=== PATIENT | female | born 1995 | race Caucasian/White ===

== ENCOUNTER 2016-05-13 13:45 | Emergency (ER) | payer BC ==
[~2016-05-13] VITALS: Ht 157.5 cm; Wt 57.9 kg
[2016-05-13 13:49] VITALS: TEMP 37; Ht 157.5 cm; Wt 57.9 kg
[2016-05-13] MEDS ORDERED: ONDANSETRON INJ 2 MG/ML 2 ML VIAL IV STA (14:52)
[2016-05-13] MEDS ORDERED: SODIUM CHLORIDE 0.9% 1000ML 1,000 ML IV STA ×2 (14:52)
[2016-05-13] MEDS ORDERED: LORAZEPAM 2 MG/ML 1 ML VIAL IV STA (14:52)
[2016-05-13] MEDS ORDERED: FENTANYL CITRATE INJ 50 MCG/1 ML 2 ML VIAL IV STA (14:52)
[2016-05-13] MEDS ORDERED: MEDR1INJ3 IM (14:53)
[2016-05-13 15:16] LABS: BASO % 0.3 %; BASO ABS # 0.03 K/uL (0-0.2); COMPLETE YES; EOS % 2.3 %; HEMATOCRIT 44.5 % (37-47); IG% 0.1 %; LYMPH % 27.7 %; LYMPH ABS # 2.43 K/uL (1.2-3.4); MEAN CELL VOLUME 91.2 fL (80-100); MEAN CORPUSCULAR HEMOGLOBIN 31.6 pg (25-34); MEAN CORPUSCULAR HGB CONC 34.6 g/dl (32-36); MEAN PLATELET VOLUME 10.4 fL (7.4-10.4); MONO % 9.2 %; NEUT % 60.4 %; PLATELET COUNT 260 K/uL (130-400); RED BLOOD COUNT 4.88 M/uL (4.2-5.4); WHITE BLOOD COUNT 8.76 K/uL (4.8-10.8)
[2016-05-13 15:24] LABS: URINE APPEARANCE CLEAR (CLEAR); URINE BILIRUBIN NEG (NEG); URINE COLOR YELLOW; URINE EPITHELIAL CELL AUTO >30 /lpf (0-5); URINE NITRITE NEG (NEG); URINE PH 6.5 (4.5-7.5); URINE SPECIFIC GRAVITY 1.021 (1.000-1.030); UROBILINOGEN NEG (NEG)
[2016-05-13 15:28] LABS: MANUAL MICROSCOPIC REQUIRED? NO; REVIEW REQ? YES
[2016-05-13 15:33] LABS: BUN/CREATININE RATIO 15.5 (10-20); CALCIUM 9.2 mg/dl (8.5-10.1); POTASSIUM 3.8 mmol/L (3.5-5.1)
[2016-05-13 15:36] LABS: ALB/GLOB RATIO 1.4 (0.9-2)
[2016-05-13 15:39] LABS: URINE MUCUS PRESENT (NONE PRSENT)
[2016-05-13] MEDS ORDERED: OPTIRAY 320 IV PRN (15:45)
[2016-05-13 15:57] LABS: PREG INTERNAL NEGATIVE QC NEG CLEAR BACKGROUND; PREG INTERNAL POSITIVE QC POS CONTROL LINE
--- NOTE | 2016-05-13 16:28 | DIAGNOSTIC IMAGING REPORT ---
CT SCAN OF THE ABDOMEN AND PELVIS WITH IV CONTRAST CLINICAL HISTORY: Right lower quadrant abdominal pain. COMPARISON STUDY: No priors. TECHNIQUE: Following the IV administration of 93 cc of Optiray 320, CT scan of the abdomen and pelvis is performed from the lung bases to the proximal femora. Images are reviewed in the axial, sagittal, and coronal planes. IV contrast was administered without complication. Automated dose control exposure was utilized. CT DOSE: 292.40 mGy.cm FINDINGS: Lung bases: The heart is normal in size and without pericardial effusion. The lung bases are clear. Liver: The contrast-enhanced liver is normal in size, contour, and attenuation. There is no intrahepatic biliary ductal dilatation. The hepatic veins and portal veins are patent. Gallbladder: Unremarkable. Spleen: Normal in size and attenuation. Pancreas: Unremarkable. Adrenal glands: Unremarkable. Kidneys: The contrast enhanced kidneys are normal in size and without hydronephrosis. The kidneys enhance symmetrically. Abdominal vasculature: The abdominal aorta is normal in course and caliber. Bowel: The small bowel and colon are normal in course and caliber. There is mild to moderate colonic fecal retention. The appendix is well-visualized and normal. Peritoneum: There is no intraperitoneal free air or abdominal ascites. Lymphadenopathy: None. Pelvic viscera: The bladder, uterus, and adnexa are normal as visualized. There are bilateral ovarian follicles. Skeletal structures: No lytic or blastic lesions are seen. IMPRESSION: There are no acute infectious or inflammatory findings in the abdomen or pelvis. Electronically signed by: Tristen Falcon M.D. 05/13/2016 4:25 PM Dictated Date/Time: 05/13/2016 4:22 PM
--- NOTE | 2016-05-13 17:47 | DIAGNOSTIC IMAGING REPORT ---
ULTRASOUND OF THE PELVIS CLINICAL HISTORY: Right pelvic pain. COMPARISON STUDY: Pelvic CT dated 05/13/2016. TECHNIQUE: Real-time, grayscale, and color flow sonography of the pelvis is performed transabdominally. Images are reviewed in the transverse and longitudinal planes. The patient declined the endovaginal examination. FINDINGS: Uterus: The uterus is normal in size and echotexture, measuring 7.3 x 3.8 x 5.1 cm. Endometrium: The endometrium is normal in appearance, and the endometrial stripe is normal in thickness measuring up to 0.3 cm. Ovaries: The ovaries are normal in size and morphology. The right ovary measures 3.3 x 2.0 x 2.8 cm and the left ovary measures 3.1 x 2.0 x 2.1 cm. Small follicles are noted. Normal Doppler waveforms are shown within both ovaries. Pelvis: There is no free fluid in the cul-de-sac. No concerning adnexal lesion is seen. IMPRESSION: 1. Unremarkable transabdominal sonographic assessment of the uterus and ovaries. 2. The patient declined the endovaginal examination. Electronically signed by: Tristen Falcon M.D. 05/13/2016 5:46 PM Dictated Date/Time: 05/13/2016 5:44 PM
--- NOTE | 2016-05-13 18:09 | EMERGENCY ROOM VISIT NOTE ---
History First contact with patient: 14:33 Chief Complaint: ABDOMINAL PAIN Stated Complaint: ABDOMINAL PAIN, CHILLS, FEVER, VOMITING, REFERRED Nursing Triage Summary: Triage note: Pt reports for the past three days she has had nausea, vomitting, and right lower abd pain, fever and chills. pt reports she was seen at [facility] and sent to ed for further eval. History of Present Illness Patient is a 20-year-old white female who presents to the emergency department accompanied by her boyfriend's mother for evaluation of right-sided abdominal pain, nausea and vomiting over the last 3 days. Patient states that she noted a dull, aching pain in the right mid abdomen, lateral to the umbilicus about 3 days ago. She noted associated headache, dizziness, and subsequently developed nausea and vomiting. She subjectively has felt feverish and had the chills but did not have a fever when she took her temperature with a thermometer. She reports she is vomiting everything she eats other than water and applesauce. She denies any diarrhea. No urinary symptoms. She denies any vaginal discharge. No significant gynecologic history. She does not menstruate due to Depo-Provera. Initially she thought she may have contracted a virus, then thought she could've gotten a foodborne illness as she had eaten some soup that no one else had had. She was seen at [facility], and sent to the emergency department for further care and evaluation. Review of Systems Review of systems as per HPI. All other systems reviewed were negative. 10 systems reviewed. Past Medical/Surgical History Medical Problems: (1) Anxiety (2) Depression (3) Panic disorder (4) Post traumatic stress disorder Electronic medical records are reviewed and summarized as above/below. See Problem List. Social History Smoking Status: Never Smoker Alcohol Use: none Marital Status: in relationship Housing Status: lives with significant other Occupation Status: employed Current/Historical Medications Scheduled PRN Ondasetron Odt (Zofran Odt), 4 MG SL Q4 PRN for Nausea or Vomiting Miscellaneous Medications Medroxyprogesterone Acetate (C (Depo-Provera Contraceptiv), 150 MG IM Allergies Coded Allergies: Grape (Unverified Allergy, Unknown, anaphylaxis, 05/13/16) Peanut (Unverified Allergy, Unknown, anaphylaxis, 05/13/16) Physical Exam Vital Signs Date Time Temp Pulse Resp B/P Pulse Ox O2 Delivery O2 Flow Rate FiO2 05/13/16 19:23 74 18 107/59 99 05/13/16 18:44 88 16 105/54 95 05/13/16 16:47 76 18 105/69 100 05/13/16 15:19 76 16 94/73 95 Room Air 05/13/16 13:49 37.0 91 18 151/81 97 Room Air Physical Exam CONSTITUTIONAL: Patient is well-appearing 20-year-old white female who is awake and alert and in no acute distress. EYES: Pupils equal, round, reactive to light and accommodation. EOMs intact without nystagmus. Sclera are anicteric. ENT: Tympanic membranes intact, with normal landmarks. External canals are clear. Oral and nasopharynx are clear. Mucous membranes are moist, no lesions , tongue and gums appear normal. NECK: No bruits auscultated. Supple without lymphadenopathy. No thyromegaly. No meningeal signs. Full active range of motion without discomfort. CARDIOVASCULAR: Regular rate and rhythm, with normal S1 and S2, no murmur or gallop or rub is heard. No carotid bruits auscultated. No JVD. Peripheral pulses easy to palpable. RESPIRATORY: Breath sounds equal and clear to auscultation without wheezes, rales, or rhonchi heard. Full and equal chest expansion without accessory muscle use or retractions. GI: Bowel sounds are present. Abdomen is soft, scaphoid, tender to percussion and palpation in the right mid and right lower quadrant with voluntary guarding. Positive rebound and referred rebound tenderness. No organomegaly. No pulsatile masses. MUSCULOSKELETAL: Full range of motion of extremities x 4 with good strength. No cyanosis, edema, joint tenderness or swelling. No deformity. INTEGUMENTARY: No lesions or rash, normal skin turgor. NEUROLOGICAL: Alert, oriented, and cooperative. Cranial nerves, sensation and strength grossly intact. Pupils round, equal, and react to light, EOMs are full. LYMPH: No lymphadenopathy. Medical Decision & Procedures ER Provider Diagnostic Interpretation: CT SCAN OF THE ABDOMEN AND PELVIS WITH IV CONTRAST CLINICAL HISTORY: Right lower quadrant abdominal pain. COMPARISON STUDY: No priors. TECHNIQUE: Following the IV administration of 93 cc of Optiray 320, CT scan of the abdomen and pelvis is performed from the lung bases to the proximal femora. Images are reviewed in the axial, sagittal, and coronal planes. IV contrast was administered without complication. Automated dose control exposure was utilized. CT DOSE: 292.40 mGy.cm FINDINGS: Lung bases: The heart is normal in size and without pericardial effusion. The lung bases are clear. Liver: The contrast-enhanced liver is normal in size, contour, and attenuation. There is no intrahepatic biliary ductal dilatation. The hepatic veins and portal veins are patent. Gallbladder: Unremarkable. Spleen: Normal in size and attenuation. Pancreas: Unremarkable. Adrenal glands: Unremarkable. Kidneys: The contrast enhanced kidneys are normal in size and without hydronephrosis. The kidneys enhance symmetrically. Abdominal vasculature: The abdominal aorta is normal in course and caliber. Bowel: The small bowel and colon are normal in course and caliber. There is mild to moderate colonic fecal retention. The appendix is well-visualized and normal. Peritoneum: There is no intraperitoneal free air or abdominal ascites. Lymphadenopathy: None. Pelvic viscera: The bladder, uterus, and adnexa are normal as visualized. There are bilateral ovarian follicles. Skeletal structures: No lytic or blastic lesions are seen. IMPRESSION: There are no acute infectious or inflammatory findings in the abdomen or pelvis. ULTRASOUND OF THE PELVIS CLINICAL HISTORY: Right pelvic pain. COMPARISON STUDY: Pelvic CT dated 05/13/2016. TECHNIQUE: Real-time, grayscale, and color flow sonography of the pelvis is performed transabdominally. Images are reviewed in the transverse and longitudinal planes. The patient declined the endovaginal examination. FINDINGS: Uterus: The uterus is normal in size and echotexture, measuring 7.3 x 3.8 x 5.1 cm. Endometrium: The endometrium is normal in appearance, and the endometrial stripe is normal in thickness measuring up to 0.3 cm. Ovaries: The ovaries are normal in size and morphology. The right ovary measures 3.3 x 2.0 x 2.8 cm and the left ovary measures 3.1 x 2.0 x 2.1 cm. Small follicles are noted. Normal Doppler waveforms are shown within both ovaries. Pelvis: There is no free fluid in the cul-de-sac. No concerning adnexal lesion is seen. IMPRESSION: 1. Unremarkable transabdominal sonographic assessment of the uterus and ovaries. 2. The patient declined the endovaginal examination. Laboratory Results 05/13/16 14:58 Red Blood Count 4.88, Mean Corpuscular Volume 91.2, Mean Corpuscular Hemoglobin 31.6, Mean Corpuscular Hemoglobin Concent 34.6, Mean Platelet Volume 10.4, Neutrophils (%) (Auto) 60.4, Lymphocytes (%) (Auto) 27.7, Monocytes (%) (Auto) 9.2, Eosinophils (%) (Auto) 2.3, Basophils (%) (Auto) 0.3, Neutrophils # (Auto) 5.28, Lymphocytes # (Auto) 2.43, Monocytes # (Auto) 0.81, Eosinophils # (Auto) 0.20, Basophils # (Auto) 0.03 05/13/16 14:58 Test 05/13/16 14:58 White Blood Count 8.76 K/uL (4.8-10.8) Red Blood Count 4.88 M/uL (4.2-5.4) Hemoglobin 15.4 g/dL (12.0-16.0) Hematocrit 44.5 % (37-47) Mean Corpuscular Volume 91.2 fL (80-100) Mean Corpuscular Hemoglobin 31.6 pg (25-34) Mean Corpuscular Hemoglobin Concent 34.6 g/dl (32-36) Platelet Count 260 K/uL (130-400) Mean Platelet Volume 10.4 fL (7.4-10.4) Neutrophils (%) (Auto) 60.4 % Lymphocytes (%) (Auto) 27.7 % Monocytes (%) (Auto) 9.2 % Eosinophils (%) (Auto) 2.3 % Basophils (%) (Auto) 0.3 % Neutrophils # (Auto) 5.28 K/uL (1.4-6.5) Lymphocytes # (Auto) 2.43 K/uL (1.2-3.4) Monocytes # (Auto) 0.81 K/uL (0.11-0.59) Eosinophils # (Auto) 0.20 K/uL (0-0.5) Basophils # (Auto) 0.03 K/uL (0-0.2) RDW Standard Deviation 39.3 fL (36.4-46.3) RDW Coefficient of Variation 11.7 % (11.5-14.5) Immature Granulocyte % (Auto) 0.1 % Immature Granulocyte # (Auto) 0.01 K/uL (0.00-0.02) Urine Color YELLOW Urine Appearance CLEAR (CLEAR) Urine pH 6.5 (4.5-7.5) Urine Specific [place] 1.021 (1.000-1.030) Urine Protein NEG (NEG) Urine Glucose (UA) NEG (NEG) Urine Ketones NEG (NEG) Urine Occult Blood NEG (NEG) Urine Nitrite NEG (NEG) Urine Bilirubin NEG (NEG) Urine Urobilinogen NEG (NEG) Urine Leukocyte Esterase TRACE (NEG) Urine WBC (Auto) 5-10 /hpf (0-5) Urine RBC (Auto) 0-4 /hpf (0-4) Urine Hyaline Casts (Auto) 1-5 /lpf (0-5) Urine Epithelial Cells (Auto) >30 /lpf (0-5) Urine Bacteria (Auto) 2+ (NEG) Urine Renal Epithelial Cells /lpf (0-5) Urine Mucus PRESENT (NONE PRSENT) Anion Gap 10.0 mmol/L (3-11) Est Creatinine Clear Calc Drug Dose 69.8 ml/min Estimated GFR () 92.6 Estimated GFR (Non- 79.9 BUN/Creatinine Ratio 15.5 (10-20) Calcium Level 9.2 mg/dl (8.5-10.1) Total Bilirubin 0.5 mg/dl (0.2-1) Aspartate Amino Transf (AST/SGOT) 13 U/L (15-37) Alanine Aminotransferase (ALT/SGPT) 20 U/L (12-78) Alkaline Phosphatase 80 U/L (45-117) Total Protein 8.0 gm/dl (6.4-8.2) Albumin 4.6 gm/dl (3.4-5.0) Globulin 3.4 gm/dl (2.5-4.0) Albumin/Globulin Ratio 1.4 (0.9-2) Human Chorionic Gonadotropin, Qual NEG (NEG) Medications Administered Medications (Trade) Dose Ordered Sig/Melba Route Start Time Stop Time Status Last Admin Dose Admin Sodium Chloride 1,000 ml @ 999 mls/hr Q1H1M STAT IV 05/13/16 14:52 05/13/16 15:52 DC 05/13/16 15:16 999 MLS/HR Sodium Chloride (Nss 1000ml) 1,000 ml @ 250 mls/hr Q4H STAT IV 05/13/16 14:52 05/13/16 18:51 DC 05/13/16 16:46 250 MLS/HR Fentanyl Citrate (Fentanyl Inj) 50 mcg NOW STAT IV 05/13/16 14:52 05/13/16 14:55 DC 05/13/16 15:15 50 MCG Ondansetron HCl (Zofran Inj) 4 mg NOW STAT IV 05/13/16 14:52 05/13/16 14:55 DC 05/13/16 15:15 4 MG Lorazepam (Ativan Inj) 1 mg NOW STAT IV 05/13/16 14:52 05/13/16 14:55 DC 05/13/16 15:16 1 MG Ondansetron HCl (ZOFRAN ODT 4MG Home Pack) 1 homepack UD ONCE PO 05/13/16 18:15 05/13/16 18:16 DC 05/13/16 19:13 1 HOMEPACK ED Course The patient was seen and evaluated as above. She has no old records available for review. She presents to the emergency department for evaluation of right- sided abdominal pain, nausea, vomiting and subjective fever and chills over the last 3 days. IV access was obtained and she was hydrated with normal saline solution. She CBC, CMP, serum hCG and urinalysis were performed. She was medicated with fentanyl 50 g IV, Zofran 4 mg IV and Ativan 1 mg IV for discomfort and anxiety. Given her symptoms, CT scan of the abdomen and pelvis with IV contrast was ordered. Laboratory studies did not demonstrate any leukocytosis, anemia, left shift or bandemia. Electrolytes and renal function are normal. Liver functions are not elevated. Her serum hCG is negative.urinalysis shows trace leukocyte esterase and a few WBCs, 2+ bacteria is present, but there are no other indicators for infection and sample is likely contaminated with greater than [address] scan of the abdomen and pelvis was essentially normal. There was mild to moderate colonic fecal retention, and appendix was well visualized and was normal. There was no free air or obstructive pattern. No obvious abnormalities involving the pelvic viscera. Gallbladder was unremarkable. There was no intrahepatic ductal dilatation. Patient questioned whether her symptoms could be gynecologic in nature. I did discuss with her that there was no obvious abnormality of the gynecologic structures on CT, but to further characterize we could image with an ultrasound, and she was in agreement. Pelvic ultrasound was unremarkable. There was no evidence for ovarian cyst or torsion. All laboratory and diagnostic imaging studies were reviewed with the patient and her family. Continue supportive care measures were discussed. She was encouraged to follow a soft/clear liquid diet and advance as tolerated. She was provided Zofran for nausea, but otherwise was encouraged to stick with acetaminophen for discomfort. Certainly if her symptoms are worsening she should return to the emergency department for further care and evaluation, otherwise follow-up with her primary care provider. Differential diagnoses entertained included UTI, pyelonephritis, renal colic, appendicitis, bowel obstruction, perforation, infectious versus inflammatory colitis, food borne illness, gastroenteritis, ovarian cyst, ovarian torsion, , ectopic , among others. Medical Decision See ED Course. Impression Primary Impression: Right lower quadrant abdominal pain Departure Information Prescriptions Ondasetron Odt (ZOFRAN ODT) 4 Mg Tab 4 MG SL Q4 Y for Nausea or Vomiting, #20 TAB Prov: Montserrat Vega PA 05/13/16 Referrals No Doctor, Assigned (PCP) Patient Instructions [facility] Additional Instructions DO NOT drive, drink alcohol, operate machinery, or perform dangerous activities today. You were given medications in the ER that can affect your ability to safely function or operate a vehicle. Ibuprofen(Motrin, Advil) may be used for fever or pain. Use 600mg every six hours as needed. Take with food. Avoid using more than 2400mg in a 24 hour period. Do not use 2400mg per day for more than three consecutive days without physician direction. Prolonged inappropriate use can lead to stomach upset or ulcers. This is available over the counter and typically comes in 200mg tablets. (AND/OR) Acetaminophen(Tylenol) may be used for fever or pain. Use 1000mg every eight hours as needed. Avoid using more than 3000mg in a 24 hour period. This is available over the counter. Zofran(odansetron) tablets 4mg: Take one and allow it to dissolve in your mouth every four hours as needed for nausea or vomiting. Read all the package inserts or medication information paperwork provided. If you have any questions or concerns call your primary provider, pharmacist or the ER for assistance. Rest and drink plenty of fluids as tolerated. Slow sips of water or sports drinks are recommended instead of large amounts all at once. Continue current medications. Once your stomach is settled start with a clear liquid diet (jello, soup broth, etc.) and then advance as tolerated. You should avoid full, heavy meals for about 24 hrs from the time your symptoms resolved. Return to the ER immediately for worsening or persistent abdominal pain, vomiting, fevers, chest pains, difficulty breathing, black or bloody stools, worsening of your condition, or as needed. Return to the ER or follow up with your primary provider in 8-12 hours for a recheck of your current condition. Follow up with your primary physician in 1-2 days for a recheck of your current condition.
[2016-05-13] MEDS ORDERED: ONDA4TAB10 SL (18:11)
[2016-05-13] MEDS ORDERED: ONDANSETRON HOME PACK 4MG OD TAB PO ONE (18:15)
[2016-05-13 19:23] VITALS: BP 107/59; PULSE 74; O2SAT 99
== END 2016-05-13 19:25 | disposition home or self-care (01) ==
LOC: C.EDB 13:46 → C.EDC 19:25
DX: R10.31 Right lower quadrant pain (principal); F41.9 Anxiety disorder, unspecified; F43.10 Post-traumatic stress disorder, unspecified

== ENCOUNTER → 2016-11-20 | Outpatient (CLI) | payer BC ==
[~2016-11-20] MED LIST: MEDR1INJ3 IM
== END | disposition home or self-care (01) ==
LOC: C.PAPS 15:09
PROVIDERS: ATTEND Obstetrics & Gynecology
DX: Z01.419 Encounter for gynecological examination (general) (routine) without abnormal findings (principal)

== ENCOUNTER → 2016-11-20 | Outpatient (CLI) | payer BC ==
[2016-11-23 01:31] LABS: CHLAMYDIA TRACH RNA*** NOT DETECTED (NOT DETECTED); GC (NEIS GONORRHOEAE)RNA** NOT DETECTED (NOT DETECTED)
== END | disposition home or self-care (01) ==
LOC: C.LABSPEC 13:52
PROVIDERS: ATTEND Obstetrics & Gynecology
DX: Z11.3 Encounter for screening for infections with a predominantly sexual mode of transmission (principal)

== ENCOUNTER → 2016-11-20 | Outpatient (CLI) | payer BC ==
[2016-11-20 14:03] LABS: PREG INTERNAL NEGATIVE QC NEG CLEAR BACKGROUND; PREG INTERNAL POSITIVE QC POS CONTROL LINE; THYROID STIMULATING HORMONE 1.15 uIu/ml (0.300-4.500)
== END | disposition home or self-care (01) ==
LOC: C.LAB1850 11:45
PROVIDERS: ATTEND Obstetrics & Gynecology
DX: R63.5 Abnormal weight gain (principal); Z31.69 Encounter for other general counseling and advice on procreation; N91.2 Amenorrhea, unspecified

== ENCOUNTER → 2017-03-12 | Outpatient (CLI) | payer BC ==
[2017-03-12 14:38] LABS: BASO % 0.6 %; BASO ABS # 0.04 K/uL (0-0.2); COMPLETE YES; EOS % 1.8 %; HEMATOCRIT 43.4 % (37-47); IG% 0.1 %; LYMPH % 22.3 %; MEAN CELL VOLUME 92.7 fL (80-100); MEAN CORPUSCULAR HEMOGLOBIN 31.2 pg (25-34); MEAN CORPUSCULAR HGB CONC 33.6 g/dl (32-36); MONO % 10.2 %; PLATELET COUNT 238 K/uL (130-400); RED BLOOD COUNT 4.68 M/uL (4.2-5.4); WHITE BLOOD COUNT 7.16 K/uL (4.8-10.8)
[2017-03-12 14:43] LABS: PREG INTERNAL NEGATIVE QC NEG CLEAR BACKGROUND; PREG INTERNAL POSITIVE QC POS CONTROL LINE
== END | disposition home or self-care (01) ==
LOC: C.LAB1850 11:58
PROVIDERS: ATTEND Physician Assistant
DX: N92.6 Irregular menstruation, unspecified (principal)

== ENCOUNTER 2017-06-03 15:33 | Emergency (ER) | payer BC ==
[~2017-06-03] VITALS: Ht 158.8 cm; Wt 64.8 kg
[2017-06-03 16:08] VITALS: TEMP 37.5; Ht 158.8 cm; Wt 64.8 kg
[2017-06-03] MEDS ORDERED: ONDANSETRON INJ 2 MG/ML 2 ML VIAL IV STA ×2 (16:41→18:22)
[2017-06-03] MEDS ORDERED: ACETAMINOPHEN IV 100 ML IV STA (16:41)
[2017-06-03] MEDS ORDERED: SODIUM CHLORIDE 0.9% 1000ML 1,000 ML IV STA ×2 (16:41→18:22)
--- NOTE | 2017-06-03 16:45 | EMERGENCY ROOM VISIT NOTE ---
ED Visit Note First contact with patient: 16:33 CHIEF COMPLAINT: Heavy vaginal bleeding, abdominal pain HISTORY OF PRESENTING ILLNESS: This is a 21 year old female who presents to the emergency department with complaint of heavy vaginal bleeding and abdominal pain. She states she used to be on the Depo shot for about five years, this was stopped in June of last year and she got her periods back several months ago. Her last menstrual period was 05/12, and she has been regular every month for some time. She sates she started with light spotting two days ago, then had heavier flow yesterday. Today she has been passing large clots and going through 2 pads every hour for the past several hours, and has also been having diffuse abdominal cramping with severe sharp stabbing pains in her right abdomen. She states the pain is constant, worse with moving, 10/10. She has not tried any medications for the pain. She did speak with her [facility] clinic and was referred to the emergency department for further evaluation. She has had associated nausea and vomiting, chills and sweats. She denies any dysuria or urinary frequency, diarrhea, fevers or chills, chest pain, shortness of breath, syncope, or rash. REVIEW OF SYSTEMS: A complete 10 point review of systems was reviewed with the patient with pertinent positives and negatives as per history of present illness. All else were negative. PAST MEDICAL HISTORY: Anxiety SOCIAL HISTORY: Lives at home with her significant other. She denies tobacco, alcohol, or illicit drug use. ALLERGIES: Reviewed in chart. PHYSICAL EXAM: CONSTITUTIONAL: Pleasant and cooperative. No acute distress, but appears anxious and uncomfortable and is slow to move throughout exam. Mildly dehydrated, but otherwise well appearing and well nourished. HEENT: Normocephalic, atraumatic. Pupils equal, round and reactive to light, EOMI. TMs normal. Pharynx normal. Tacky mucous membranes. NECK: Supple, full active range of motion without discomfort. RESPIRATORY: Clear to auscultation bilaterally with no wheezing, crackles, rhonchi or stridor. Equal expansion bilaterally. CARDIOVASCULAR: Tachycardic. Regular rhythm with no murmurs, rubs or gallops. Normal peripheral perfusion. No edema. GASTROINTESTINAL: Soft, diffusely tender throughout, most tender in the right lower quadrant, nondistended. Positive guarding throughout. No rebound tenderness. Right CVA tenderness. No palpable masses or HSM. Bowel sounds present in all quadrants. PELVIC EXAM: VULVA: No ulcers, vesicles or atrophy. VAGINA: Bloody discharge with small clots, no foul odor. CERVIX: Closed, pink, nontender, no cervical motion tenderness, small amount of bloody discharge from the os. UTERUS: Normal size, tender to palpation. ADNEXA: Fullness in the right adnexa with significant tenderness to palpation, left adnexa is mildly tender. A nurse was present as a casing man during the examination. MUSCULOSKELETAL: Full range of motion of all joints without discomfort. INTEGUMENTARY: No rash or other significant dermatologic conditions noted. NEUROLOGIC: Alert and oriented X 4 with normal affect. Normal strength and sensation in all 4 extremities. No focal neurologic deficits noted. Normal speech. Normal gait observed. ED COURSE AND MEDICAL DECISION MAKING: CC: Patient presenting with complaint of heavy vaginal bleeding and abdominal pain DIFFERENTIAL DIAGNOSIS: Includes, but not limited to dysfunctional uterine bleeding, ectopic , threatened miscarriage, anemia, dehydration, uterine fibroids/polyps, ovarian cyst, ovarian torsion, among others. INTERPRETATION OF LABS: No leukocytosis, no anemia, no significant electrolyte abnormalities, normal renal function, normal liver enzymes. Coagulation factors within normal limits. UA shows large blood, negative for infection. Urine negative. IMAGING: TRANSVAG-FEMALE PELVIS, PELVIC COMPLETE NON OB CLINICAL HISTORY: 21 years-old Female presenting with eval heavy vaginal bleeding, regular menstrual cycles, last menstrual period 06/01/2017. TECHNIQUE: Real-time grayscale and color and spectral Doppler ultrasound imaging of the pelvis was performed first using a transabdominal probe and subsequently transvaginal for better characterization. COMPARISON: CT from 05/13/2016. FINDINGS: Uterus: Normal. Anteverted. The uterus measures 7.7 x 3.8 x 5.2 cm. Endometrial stripe measures 4 mm in thickness. Endometrium normal-appearing. Cervix normal. Right adnexa: Right ovary with multiple follicles (up to 8 on a single image all less than 1 cm). Right ovary measures 3.3 x 2.2 x 3.2 cm. Normal color Doppler flow and arterial and venous waveforms within the ovarian parenchyma. Left adnexa: Left ovary with multiple follicles (up to 5 on a single image all less than 1 cm). Left ovary measures 3.4 x 2.1 x 3.0 cm. Normal color Doppler flow and arterial and venous waveforms within the ovarian parenchyma. Other: No free fluid. IMPRESSION: No significant abnormality identified within the pelvis. MEDICATION RECONCILIATION: I attest that I have personally reviewed the patient 's current medication list. INITIAL VITAL SIGNS REVIEW: I reviewed the patient's initial vital signs and interpret them as follows: T: Afebrile; BP: Normotensive; HR: Tachycardic; RR : Within normal limits; Pulse Ox: Within normal limits on room air. Blood pressure screening: The patient was found to have normal blood pressure on screening and does not require follow-up for repeat blood pressure check. SUMMARY: Patient was evaluated at bedside, history and physical exam performed. Patient is alert and oriented, no acute distress, but does appear uncomfortable throughout exam, resting on the stretcher. Patient is diffusely tender throughout the abdomen, most tender in the right lower quadrant. Pelvic exam performed, noting moderate vaginal bleeding, but no gushing or steady flow, cervical os is closed. Patient with fullness and significant tenderness in the right adnexa. Orders were placed at bedside for labs, UA and urine , IV fluids for hydration, IV morphine and Tylenol for pain, transvaginal pelvic ultrasound to evaluate for abnormal bleeding. Patient discussed with Dr. Fernando, who agrees with my assessment and plan. Labs and imaging reviewed as above, unremarkable. She is not . Ultrasound shows multiple small ovarian follicles bilaterally, greater on the right, otherwise negative for any acute findings. I spoke with Dr. Rodriguez, [facility], she recommends against starting hormonal therapy at this time, recommends patient take 600mg Motrin q6h and follow up as an outpatient. Patient reassessed multiple times throughout ED stay, she reports her pain is somewhat improved and her bleeding has significant slowed down while being in the emergency department. She is tolerating oral fluids without difficulty, her nausea is improved, and her tachycardia is resolving after IV fluids. Patient was updated on all results and plan for discharge, she was comfortable with this plan. I encouraged patient to follow closely with her seat pack inspector if her vaginal bleeding/abdominal cramping continues. Patient was also given strict return precautions should her symptoms worsen, she verbalized understanding. Patient was discharged home in stable condition and ambulatory. Problem List Medical Problems: (1) Anxiety Status: Chronic (2) Depression Status: Chronic (3) Panic disorder Status: Chronic (4) Post traumatic stress disorder Status: Chronic Current/Historical Medications No Active Prescriptions or Reported Meds Allergies Coded Allergies: Grape (Unverified Allergy, Unknown, anaphylaxis, 06/03/17) Peanut (Unverified Allergy, Unknown, anaphylaxis, 06/03/17) Vital Signs Date Time Temp Pulse Resp B/P (MAP) Pulse Ox O2 Delivery O2 Flow Rate FiO2 06/03/17 20:18 77 16 105/62 95 06/03/17 19:13 83 18 108/65 98 Room Air 06/03/17 18:18 90 18 91/54 99 Room Air 06/03/17 17:25 Room Air 06/03/17 17:18 86 18 100/63 99 Room Air 06/03/17 16:08 37.5 107 18 122/79 97 Room Air Laboratory Results 06/03/17 17:15 Red Blood Count 4.57, Mean Corpuscular Volume 91.9, Mean Corpuscular Hemoglobin 31.3, Mean Corpuscular Hemoglobin Concent 34.0, Mean Platelet Volume 10.7, Neutrophils (%) (Auto) 77.2, Lymphocytes (%) (Auto) 9.7, Monocytes (%) (Auto) 11.8, Eosinophils (%) (Auto) 1.0, Basophils (%) (Auto) 0.2, Neutrophils # (Auto ) 6.25, Lymphocytes # (Auto) 0.79, Monocytes # (Auto) 0.96, Eosinophils # (Auto ) 0.08, Basophils # (Auto) 0.02 06/03/17 17:15 Test 06/03/17 17:00 06/03/17 17:15 Urine Color YELLOW Urine Appearance CLEAR (CLEAR) Urine pH 5.0 (4.5-7.5) Urine Specific [place] 1.025 (1.000-1.030) Urine Protein NEG (NEG) Urine Glucose (UA) NEG (NEG) Urine Ketones NEG (NEG) Urine Occult Blood 3+ (NEG) Urine Nitrite NEG (NEG) Urine Bilirubin NEG (NEG) Urine Urobilinogen NEG (NEG) Urine Leukocyte Esterase NEG (NEG) Urine WBC (Auto) 1-5 /hpf (0-5) Urine RBC (Auto) 10-30 /hpf (0-4) Urine Hyaline Casts (Auto) 1-5 /lpf (0-5) Urine Epithelial Cells (Auto) >30 /lpf (0-5) Urine Bacteria (Auto) NEG (NEG) Urine Test NEG (NEG) White Blood Count 8.11 K/uL (4.8-10.8) Red Blood Count 4.57 M/uL (4.2-5.4) Hemoglobin 14.3 g/dL (12.0-16.0) Hematocrit 42.0 % (37-47) Mean Corpuscular Volume 91.9 fL (80-100) Mean Corpuscular Hemoglobin 31.3 pg (25-34) Mean Corpuscular Hemoglobin Concent 34.0 g/dl (32-36) Platelet Count 232 K/uL (130-400) Mean Platelet Volume 10.7 fL (7.4-10.4) Neutrophils (%) (Auto) 77.2 % Lymphocytes (%) (Auto) 9.7 % Monocytes (%) (Auto) 11.8 % Eosinophils (%) (Auto) 1.0 % Basophils (%) (Auto) 0.2 % Neutrophils # (Auto) 6.25 K/uL (1.4-6.5) Lymphocytes # (Auto) 0.79 K/uL (1.2-3.4) Monocytes # (Auto) 0.96 K/uL (0.11-0.59) Eosinophils # (Auto) 0.08 K/uL (0-0.5) Basophils # (Auto) 0.02 K/uL (0-0.2) RDW Standard Deviation 39.5 fL (36.4-46.3) RDW Coefficient of Variation 11.8 % (11.5-14.5) Immature Granulocyte % (Auto) 0.1 % Immature Granulocyte # (Auto) 0.01 K/uL (0.00-0.02) Prothrombin Time 10.3 SECONDS (9.0-12.0) Prothromb Time International Ratio 1.0 (0.9-1.1) Activated Partial Thromboplast Time 27.9 SECONDS (21.0-31.0) Partial Thromboplastin Ratio 1.1 Anion Gap 8.0 mmol/L (3-11) Est Creatinine Clear Calc Drug Dose 96.7 ml/min Estimated GFR () 118.6 Estimated GFR (Non- 102.4 BUN/Creatinine Ratio 17.6 (10-20) Calcium Level 9.1 mg/dl (8.5-10.1) Total Bilirubin 0.6 mg/dl (0.2-1) Aspartate Amino Transf (AST/SGOT) 9 U/L (15-37) Alanine Aminotransferase (ALT/SGPT) 15 U/L (12-78) Alkaline Phosphatase 82 U/L (45-117) Total Protein 7.8 gm/dl (6.4-8.2) Albumin 4.3 gm/dl (3.4-5.0) Globulin 3.5 gm/dl (2.5-4.0) Albumin/Globulin Ratio 1.2 (0.9-2) Medications Administered Medications (Trade) Dose Ordered Sig/Melba Route Start Time Stop Time Status Last Admin Dose Admin Ondansetron HCl (Zofran Inj) 4 mg NOW STAT IV 06/03/17 16:41 06/03/17 16:43 DC 06/03/17 17:17 4 MG Sodium Chloride 1,000 ml @ 999 mls/hr Q1H1M STAT IV 06/03/17 16:41 06/03/17 17:41 DC 06/03/17 17:17 999 MLS/HR Acetaminophen 100 ml @ 400 mls/hr NOW STAT IV 06/03/17 16:41 06/03/17 16:55 DC 06/03/17 17:17 400 MLS/HR Morphine Sulfate (MoRPHine SULFATE INJ) 4 mg NOW STAT IV 06/03/17 16:58 06/03/17 16:59 DC 06/03/17 17:18 4 MG Ketorolac Tromethamine (Toradol Inj) 15 mg NOW STAT IV 06/03/17 18:07 06/03/17 18:12 DC 06/03/17 18:19 15 MG Ondansetron HCl (Zofran Inj) 4 mg NOW STAT IV 06/03/17 18:22 06/03/17 18:23 DC 06/03/17 18:26 4 MG Sodium Chloride 1,000 ml @ 999 mls/hr Q1H1M STAT IV 06/03/17 18:22 06/03/17 19:22 DC 06/03/17 18:26 999 MLS/HR Departure Information Impression Primary Impression: Abnormal vaginal bleeding Dispostion Home / Self-Care Condition GOOD Prescriptions No Active Prescriptions or Reported Meds Referrals No Doctor, Assigned (PCP) Marina Rodriguez MD Patient Instructions ED Bleed Irregular Vaginal, My [facility] Additional Instructions You have been evaluated and treated in the emergency department today for your abnormal vaginal bleeding. Lab tests and imaging studies have ruled out any emergent causes for your symptoms which would warrant admission or surgery. To help control your abdominal cramping and to help slow down the bleeding, you should take regular strength (200 mg/tab) Advil (ibuprofen) 3 tabs every 6 hours for the next few days. Do not exceed a dose of 2400 mg in 24 hours. You may also take extra strength Tylenol (500 mg) 1-2 tablets every 6-8 hours for additional pain relief. Do not take more than 3000 mg in 24 hours. You may apply heating pad to your lower abdomen for comfort. Drink plenty of fluids to stay well hydrated. Please call your gynecology office tomorrow to set up a follow-up appointment. Please return to the emergency department for worsening symptoms, including severe worsening pain, persistent heavy bleeding (soaking through 2 or more pads /tampons per hour or passing multiple blood clots the size of your fist), fever/ chills, severe dizziness or passing out, or any other concerns. Work Instructions Return To Work: 2 days
[2017-06-03] MEDS ORDERED: MoRPHine SULFATE 4 MG/ML 1 ML CARP\\VIAL IV STA (16:58)
[2017-06-03 17:49] LABS: BASO % 0.2 %; BASO ABS # 0.02 K/uL (0-0.2); EOS ABS # 0.08 K/uL (0-0.5); HEMOGLOBIN 14.3 g/dL (12.0-16.0); IG# 0.01 K/uL (0.00-0.02); LYMPH % 9.7 %; LYMPH ABS # 0.79 K/uL (1.2-3.4); MEAN CELL VOLUME 91.9 fL (80-100); MEAN CORPUSCULAR HEMOGLOBIN 31.3 pg (25-34); MEAN PLATELET VOLUME 10.7 fL (7.4-10.4); MONO % 11.8 %; MONO ABS # 0.96 K/uL (0.11-0.59); NEUT % 77.2 %; NEUT ABS # 6.25 K/uL (1.4-6.5); PLATELET COUNT 232 K/uL (130-400); RED CELL DISTRIBUTION WIDTH CV 11.8 % (11.5-14.5); RED CELL DISTRIBUTION WIDTH SD 39.5 fL (36.4-46.3); WHITE BLOOD COUNT 8.11 K/uL (4.8-10.8)
[2017-06-03 18:00] LABS: PTT PATIENT 27.9 SECONDS (21.0-31.0)
[2017-06-03 18:06] LABS: ALBUMIN 4.3 gm/dl (3.4-5.0); CALCIUM 9.1 mg/dl (8.5-10.1); CREATININE 0.81 mg/dl (0.60-1.20); POTASSIUM 3.7 mmol/L (3.5-5.1)
[2017-06-03] MEDS ORDERED: KETOROLAC TROMETHAMINE 30 MG/ML VIAL IV STA (18:07)
[2017-06-03 18:08] LABS: TOTAL PROTEIN 7.8 gm/dl (6.4-8.2)
--- NOTE | 2017-06-03 19:34 | DIAGNOSTIC IMAGING REPORT ---
TRANSVAG-FEMALE PELVIS, PELVIC COMPLETE NON OB CLINICAL HISTORY: 21 years-old Female presenting with eval heavy vaginal bleeding, regular menstrual cycles, last menstrual period 06/01/2017. TECHNIQUE: Real-time grayscale and color and spectral Doppler ultrasound imaging of the pelvis was performed first using a transabdominal probe and subsequently transvaginal for better characterization. COMPARISON: CT from 05/13/2016. FINDINGS: Uterus: Normal. Anteverted. The uterus measures 7.7 x 3.8 x 5.2 cm. Endometrial stripe measures 4 mm in thickness. Endometrium normal-appearing. Cervix normal. Right adnexa: Right ovary with multiple follicles (up to 8 on a single image all less than 1 cm). Right ovary measures 3.3 x 2.2 x 3.2 cm. Normal color Doppler flow and arterial and venous waveforms within the ovarian parenchyma. Left adnexa: Left ovary with multiple follicles (up to 5 on a single image all less than 1 cm). Left ovary measures 3.4 x 2.1 x 3.0 cm. Normal color Doppler flow and arterial and venous waveforms within the ovarian parenchyma. Other: No free fluid. IMPRESSION: No significant abnormality identified within the pelvis. Electronically signed by: Rakesh Miranda M.D. 06/03/2017 7:33 PM Dictated Date/Time: 06/03/2017 7:29 PM
[2017-06-03 20:18] VITALS: BP 105/62; PULSE 77; O2SAT 95
== END 2017-06-03 20:19 | disposition home or self-care (01) ==
LOC: C.EDB 15:34 → C.EDC 20:19
DX: N93.9 Abnormal uterine and vaginal bleeding, unspecified (principal); F32.9 Major depressive disorder, single episode, unspecified; F43.10 Post-traumatic stress disorder, unspecified; F41.0 Panic disorder [episodic paroxysmal anxiety]; Z91.010 Allergy to peanuts; Z91.018 Allergy to other foods

== ENCOUNTER 2019-05-17 18:51 | Inpatient (IN) ==
[2019-05-17] MEDS ORDERED: BUTORPHANOL TARTRATE 1 MG/ML VIAL IV PRN (18:59)
[2019-05-17] MEDS: LACTATED RINGER'S 1,000 ML IV PRN ×2 (19:00→20:03)
[2019-05-17] MEDS ORDERED: ePHEDrine sulfate 50 MG/ML AMP ONE (19:04)
[2019-05-17] MEDS ORDERED: fentaNYL citrate 100 MCG/2 ML VIAL ONE (19:04)
[2019-05-17] MEDS ORDERED: BUPIVACAINE 0.25% 30 ML VIAL ONE (19:04)
[2019-05-17] MEDS ORDERED: fentaNYL 2MCG/ML ROPIV 1.25MG/ML 100 ML BAG EPI ONE (19:05)
[2019-05-17 19:30] LABS: Hematocrit (blood only) 35.5 % (37-47); Hemoglobin 12.1 g/dL (12.0-16.0); Mean Corpuscular Hemoglobin 31.8 pg (25-34); Mean Corpuscular Volume 93.4 fL (80-100); Mean Platelet Volume 10.9 fL (7.4-10.4); Platelet Count 202 K/uL (130-400); RDW Coefficient of Variation 12.5 % (11.5-14.5); RDW Standard Deviation 42.4 fL (36.4-46.3); White Blood Count 7.91 K/uL (4.8-10.8)
[2019-05-17 19:54] LABS: Mean Corpuscular Hgb Conc 34.1 g/dL (32-36)
--- NOTE | 2019-05-17 20:04 | Anesthesiology Consultation ---
Date of Service May 17, 2019 Assessment & Plan ASA ASA2 Proposed Anesthesia Anesthesia Type: Spinal Risk / Benefits Reviewed With: PT / POA / Parent / Guardian, Accepts Plan and Informed Consent Obtained History Height/Weight Height: 5 ft 2 in Weight: 72.575 kg Allergies Allergy/AdvReac Type Severity Reaction Status Date / Time grape Allergy Severe anaphylaxis Verified 04/26/19 15:25 Medications Home Medications Medication Instructions Recorded Confirmed Last Taken PNV cmb#95-ferrous fumarate-FA 1 tab PO DAILY 12/09/18 05/17/19 05/17/19 07:00 [] Active Medications Generic Name Dose Route Start Last Admin Trade Name Freq PRN Reason Stop Dose Admin Butorphanol Tartrate 1 mg 05/17/19 18:59 05/17/19 19:07 Stadol IV 06/16/19 18:58 1 mg ONCE PRN Administration Pain Lactated Ringer's 1,000 mls @ 125 mls/hr 05/17/19 19:00 05/17/19 20:03 Lr IV 05/19/19 18:59 999 mls/hr .Q8H PRN Administration L&D Protocol Protocol Past Medical History Medical History Depression Irritable bowel syndrome Exercise / Class Metabolic Activity II 4-5 Yardwork/Stairs/Walk up hill Past Family History Family History Grandmother (Maternal) Hypertension Past Surgical History Surgical History History of colonoscopy Past Anesthesia History No Hx of Anesthesia Complications and No Family Hx of Anesthesia Complications History of PONV No Hx of PONV and No Hx of Motion Sickness Social History Smoking Status: Never smoker Hx Alcohol Use: No Hx Substance Use: No Review of Systems denies fever/cough/ colds/ chest pain/ SOB/ PAULINA Constitutional: no fever and no chills Respiratory: no cough and no dyspnea denies PAULINA Cardiovascular: no chest pain and no dyspnea on exertion Physical Exam Vital Signs Last Vital Signs Temp 36.5 C 05/17/19 19:20 Pulse 69 05/17/19 19:20 Resp 20 05/17/19 19:20 BP 129/79 05/17/19 19:20 ENMT Mouth: no TMJ abnormality and no dentition abnormality Thyromental Distance: > or= 3.5 Finger Breadths Mallampati Class: II Neck neck extension not limited Respiratory normal respiratory effort; no respiratory distress Auscultation: lungs clear to auscultation bilaterally Cardiovascular Rate/Rhythm: regular rate and regular rhythm Neurologic moves all extremities Psychiatric Orientation: alert and oriented x 3 Testing Laboratory Results 05/17/19 19:17
--- NOTE | 2019-05-17 21:09 | Anesthesiology Progress Note ---
Date of Service May 17, 2019 Anesthesia Post Procedure Vital Signs Vital Signs: Temp Pulse Resp BP Pulse Ox 05/17/19 21:06 71 97 05/17/19 21:04 105 H 93 05/17/19 21:01 71 20 98 05/17/19 20:59 81 141/63 H 05/17/19 20:58 104 H 93 05/17/19 20:56 85 99 05/17/19 20:54 68 134/73 05/17/19 20:51 91 H 98 05/17/19 20:50 77 149/64 H 05/17/19 20:49 82 91 05/17/19 20:46 65 20 98 05/17/19 20:45 68 116/74 05/17/19 20:41 74 100 05/17/19 20:39 66 115/84 05/17/19 20:36 73 100 05/17/19 20:33 65 120/73 05/17/19 20:31 74 98 05/17/19 20:30 20 05/17/19 20:29 67 129/75 05/17/19 20:26 81 100 05/17/19 20:21 84 123/81 98 05/17/19 20:19 66 20 115/76 05/17/19 20:17 73 122/84 05/17/19 20:16 64 97 05/17/19 20:14 76 123/81 05/17/19 20:11 76 98 05/17/19 20:10 88 128/91 05/17/19 19:20 36.5 C 69 20 129/79 05/17/19 19:09 36.5 C 69 20 129/79 Transfer of Care Handoff Completed per policy Notes Mental Status: alert / awake / arousable and participated in evaluation Patient Amnestic to Procedure: Yes Nausea / Vomiting: adequately controlled Pain: adequately controlled Airway Patency, RR, SpO2: stable & adequate BP & HR: stable & adequate Hydration State: stable & adequate Anesthetic Complications: no major complications apparent and Pt Satisfied with anesthetic care
[2019-05-17] MEDS: OXYTOCIN 30 UNITS/500 ML BAG IV PRN (23:50)
[2019-05-17] MEDS ORDERED: METHYLERGONOVINE MALEATE 0.2 MG/ML AMP IM ONE (23:56)
[2019-05-17] MEDS ORDERED: bisacodyL 10 MG SUPP PR PRN (23:56)
[2019-05-17] MEDS ORDERED: BENZOCAINE 20% AER SPR 82.5 GM CAN EXT PRN (23:56)
[2019-05-17] MEDS ORDERED: SUPERCREAM 0.870% 15 GM JAR EXT PRN (23:56)
[2019-05-17] MEDS ORDERED: HYDROCORTISONE ACETATE 25 MG SUPP PR PRN (23:56)
[2019-05-17] MEDS ORDERED: DIPHTHERIA/TETANUS/PERTUSSIS 0.5 ML SYR/VIAL IM ONE (23:56)
[2019-05-17] MEDS ORDERED: ACETAMINOPHEN W/CODEINE #3 1 TAB PO PRN (23:56)
[2019-05-17] MEDS ORDERED: OXYTOCIN 30 UNITS/500 ML BAG IV PRN (23:56)
[2019-05-17] MEDS ORDERED: OXYCODONE/ACETAMINOPHEN 5mg/325mg TAB PO PRN (23:56)
[2019-05-18] MEDS: IBUPROFEN 600 MG TAB PO PRN ×2 (00:19→11:27)
[2019-05-18] MEDS: OXYTOCIN 30 UNITS/500 ML BAG IV PRN (00:24)
[2019-05-18 06:52] LABS: Hematocrit (blood only) 35.3 % (37-47); Hemoglobin 11.9 g/dL (12.0-16.0); Mean Corpuscular Hemoglobin 31.5 pg (25-34); Mean Corpuscular Hgb Conc 33.7 g/dL (32-36); Mean Corpuscular Volume 93.4 fL (80-100); Mean Platelet Volume 10.9 fL (7.4-10.4); Platelet Count 174 K/uL (130-400); RDW Coefficient of Variation 12.7 % (11.5-14.5); RDW Standard Deviation 42.7 fL (36.4-46.3); Red Blood Count 3.78 M/uL (4.2-5.4); White Blood Count 16.03 K/uL (4.8-10.8)
--- NOTE | 2019-05-18 07:38 | Operative Report ---
DATE OF OPERATION: 05/17/2019 DELIVERY NOTE Mrs. Yi is 1, para 1. Blood type is O positive, group B strep negative. She was admitted in spontaneous labor at 40 weeks and 6 days. She had membranes stripped in the office about 3 times after she went overdue. Soon after admission, she was given a spinal for pain relief and we were not able to put in an epidural. Membranes were ruptured surgically about 9 cm. Then we waited about half an hour. She cleared the cervix. She pushed for approximately 3 hours and delivered a live male . LOP over an intact perineum. Nuchal cord x1 reduced over the head, was suctioned through the mouth and the nose. Shoulders were delivered without difficulty. Cord was clamped, cut by the father. Cord blood was taken. With IV Pitocin running, the placenta was removed intact and IM Methergine was then used to create additional hemostasis, a superficial laceration of the vagina and labia at about 10:00 on the right side and this was repaired with a running 3-0 chromic and there was another small superficial vaginal laceration at the introitus at about 4 o'clock and this was also repaired with a running 3-0. Following this, vaginal exam revealed no hematoma formation or sponges in the vagina. Estimated blood loss was about 200 mL Apgars deferred to the nurses. The patient tolerated the procedure well. I attest to the content of the Intraoperative Record and any orders documented therein. Any exception s are noted below.
[2019-05-18] MEDS: DOCUSATE SODIUM 100 MG CAP PO SCH ×2 (09:25→20:19)
[2019-05-18] MEDS: PRENATAL VITAMIN 1 TAB PO SCH (09:25)
--- NOTE | 2019-05-18 09:31 | Obstetrical Progress Note ---
Date of Service May 18, 2019 Physical Exam Physical Exam: abdomen soft and non tender no calf tenderness ambulating well vaginal bleeding scant to moderate hgb 11.9 Results & Data Vital Signs (Past 12 Hours) Vital Signs Temp Pulse Pulse Resp BP BP Pulse Ox 05/18/19 03:50 36.8 C 76 18 111/70 05/18/19 02:38 36.9 C 75 18 130/68 05/18/19 02:02 72 127/70 05/18/19 01:59 72 133/71 05/18/19 01:49 72 123/62 05/18/19 01:39 76 128/60 05/18/19 01:29 77 133/79 05/18/19 01:19 72 130/79 05/18/19 01:09 73 127/77 05/18/19 00:59 74 118/66 05/18/19 00:49 78 136/74 05/18/19 00:39 80 136/65 05/18/19 00:29 87 133/63 05/18/19 00:25 37.3 C 80 18 128/64 05/18/19 00:18 120 H 156/63 H 05/17/19 23:59 156/72 H 05/17/19 23:56 106 H 99 05/17/19 23:51 108 H 98 05/17/19 23:46 100 H 97 05/17/19 23:45 102 H 137/74 05/17/19 23:42 96 H 94 05/17/19 23:41 100 H 96 05/17/19 23:36 122 H 95 05/17/19 23:31 173 H 78 L 05/17/19 23:30 142 H 94 05/17/19 23:29 142 H 185/112 H 05/17/19 23:26 125 H 95 05/17/19 23:21 120 H 93 05/17/19 23:19 108 H 87 L 05/17/19 23:16 110 H 97 05/17/19 23:11 105 H 93 05/17/19 23:06 110 H 97 05/17/19 23:01 97 H 98 05/17/19 22:59 94 H 133/76 05/17/19 22:56 101 H 98 05/17/19 22:51 118 H 97 05/17/19 22:46 86 96 05/17/19 22:44 147/87 H 05/17/19 22:41 111 H 97 05/17/19 22:38 118 H 93 05/17/19 22:36 86 95 05/17/19 22:34 80 176/70 H 05/17/19 22:31 87 20 96 05/17/19 22:30 116 H 186/129 H 05/17/19 22:26 85 96 05/17/19 22:23 109 H 93 05/17/19 22:21 82 96 05/17/19 22:17 81 145/77 H 05/17/19 22:16 112 H 92 05/17/19 22:15 82 94 05/17/19 22:11 104 H 97 05/17/19 22:10 109 H 94 05/17/19 22:06 107 H 97 05/17/19 22:03 96 H 93 05/17/19 22:01 76 97 05/17/19 22:00 20 05/17/19 21:59 77 133/62 05/17/19 21:56 95 H 97 05/17/19 21:51 85 96 05/17/19 21:48 113 H 94 05/17/19 21:46 84 96 05/17/19 21:41 75 96 05/17/19 21:36 110 H 95 05/17/19 21:31 123 H 92
[2019-05-18] MEDS: ACETAMINOPHEN 325 MG TAB PO PRN (14:39)
[2019-05-18] MEDS ORDERED: bisacodyL 5 MG TABEC PO SCH (20:00)
[2019-05-19] MEDS: ACETAMINOPHEN 325 MG TAB PO PRN ×2 (04:05→08:58)
[2019-05-19 06:23] LABS: Hematocrit (blood only) 32.2 % (37-47); Hemoglobin 10.8 g/dL (12.0-16.0)
--- NOTE | 2019-05-19 07:40 | Obstetrical Progress Note ---
Date of Service May 19, 2019 Physical Exam Physical Exam: abdomen soft and non tender ambulating well no calf tenderness vaginal bleeding scant hgb 10.8 Results & Data Vital Signs (Past 12 Hours) Vital Signs Temp Pulse Pulse Resp BP Pulse Ox 05/19/19 00:00 36.7 C 91 H 16 122/69 97 05/18/19 21:35 36.8 C 85 16 104/69
[2019-05-19] MEDS: PRENATAL VITAMIN 1 TAB PO SCH (08:58)
[2019-05-19] MEDS: DOCUSATE SODIUM 100 MG CAP PO SCH (08:58)
== END 2019-05-19 16:28 | disposition home or self-care (01) | DRG 807 ==
LOC: OPB 18:51 → 4S1 18:51 → 4S2 05-18 02:40